=== PATIENT | male | born 1950 | race Caucasian/White ===

== ENCOUNTER → 2019-09-01 | Outpatient (CLI) | payer MEDICARE, OTHER | END | disposition home or self-care (01) | LOC: RAH 07:50 | PROVIDERS: ATTEND Internal Medicine | DX: K76.0 Fatty (change of) liver, not elsewhere classified (principal); N20.0 Calculus of kidney; I77.810 Thoracic aortic ectasia | CPT/HCPCS: 76700 ==

== ENCOUNTER → 2019-11-29 | Outpatient (CLI) | payer MEDICARE | END | disposition home or self-care (01) | LOC: SHCH 14:28 | PROVIDERS: ATTEND Internal Medicine Cardiovascular Disease | DX: I10 Essential (primary) hypertension (principal) ==

== ENCOUNTER → 2019-11-29 | Outpatient (CLI) | payer OTHER | END | disposition home or self-care (01) | LOC: OIH 14:28 | PROVIDERS: ATTEND Internal Medicine Cardiovascular Disease | DX: Z13.6 Encounter for screening for cardiovascular disorders (principal); I71.2 Thoracic aortic aneurysm, without rupture ==

== ENCOUNTER → 2020-11-21 | Outpatient (CLI) | payer MEDICARE ==
[~2020-11-21] MED LIST: IOHEXOL 350 MG/ML 100ML INFUS..BTL IV ONE
== END | disposition home or self-care (01) ==
LOC: RAH 08:24
PROVIDERS: ATTEND Internal Medicine Cardiovascular Disease
DX: I71.4 Abdominal aortic aneurysm, without rupture (principal); I71.2 Thoracic aortic aneurysm, without rupture; I26.99 Other pulmonary embolism without acute cor pulmonale; I10 Essential (primary) hypertension
CPT/HCPCS: 71275; Q9967

== ENCOUNTER → 2021-01-10 | Outpatient (CLI) | payer MEDICARE | END | disposition home or self-care (01) | LOC: RAH 09:16 | PROVIDERS: ATTEND Internal Medicine | DX: M19.011 Primary osteoarthritis, right shoulder (principal); M25.511 Pain in right shoulder; M89.321 Hypertrophy of bone, right humerus | CPT/HCPCS: 73030 ==

== ENCOUNTER → 2021-08-14 | Outpatient (CLI) | payer MEDICARE | END | disposition home or self-care (01) | LOC: RAH 09:29 | PROVIDERS: ATTEND Orthopaedic Surgery | DX: M75.101 Unspecified rotator cuff tear or rupture of right shoulder, not specified as traumatic (principal); M19.011 Primary osteoarthritis, right shoulder; M85.621 Other cyst of bone, right upper arm | CPT/HCPCS: 73221 ==

== ENCOUNTER 2022-11-01 06:28 | Day surgery (SDC) | payer MEDICARE ==
[2022-10-30 12:20] VITALS: BP 135/64
[2022-10-30 12:29] LABS: BASOPHILS % (AUTO) 0.7 % (0.0-5.0); EOSINOPHILS % (AUTO) 3.3 % (0.0-8.0); HEMATOCRIT 41.9 % (42-54); LYMPHOCYTES % (AUTO) 38.4 % (21.0-51.0); MEAN CORPUSCULAR HEMOGLOBIN 31.2 pg (27.0-33.0); MEAN CORPUSCULAR HGB CONC 34.6 g/dL (32.0-36.0); MEAN CORPUSCULAR VOLUME 90.1 fL (79-99); MONOCYTES % (AUTO) 8.8 % (3.0-13.0); NEUTROPHILS % (AUTO) 48.5 % (40.0-77.0); PLATELET COUNT (AUTO) 274 K/uL (130-400); RED BLOOD CELL COUNT(AUTO) 4.65 MIL/uL (4.50-6.20); RED CELL DISTRIBUTION WIDTH 13.2 % (11.0-15.5)
[2022-10-30 12:38] LABS: CREATININE 1.1 mg/dL (0.5-1.5); POTASSIUM 4.8 mmol/L (3.5-5.1)
[~2022-11-01] VITALS: Ht 182.9 cm; Wt 99.6 kg
[2022-11-01] VITALS (14 sets, daily range): BP systolic 102–143; BP diastolic 53–81
[~2022-11-01 06:28] MED LIST changes: +ACET-66 PO; +AEC81 PO; +ALBU18HF7 IH; +ASCO500C18 PO; +CETI10CA5 PO; +FLUT16H NASAL; +IBUP-2077 PO; -IOHEXOL 350 MG/ML 100ML INFUS..BTL IV ONE; +MONT-39 PO; +MULT-1258 PO; +OMEP40CA21 PO; +PRAV20TA4 PO; +TAMS-1 PO; +VALA100031 PO; +VALS320T16 PO; +VITAMIN D PO; +ZINC220T4 PO
[2022-11-01] MEDS ORDERED: LEVOFLOXACIN 500 MG/D5W 100 ML 100 ML ONE (06:52)
[2022-11-01] MEDS ORDERED: LACTATED RINGERS 1000ML 1,000 ML IV ONE (06:52)
[2022-11-01] MEDS ORDERED: SUCCINYLCHOLINE 200MG/10ML SYR ONE (07:17)
[2022-11-01] MEDS ORDERED: LIDOCAINE PF 100MG/5ML (2%) SYRINGE 5ML ONE (07:18)
[2022-11-01] MEDS ORDERED: ONDANSETRON 4MG INJ ONE (07:18)
[2022-11-01] MEDS ORDERED: PROPOFOL 10 MG/ML 20ML VIAL IV ONE (07:18)
[2022-11-01] MEDS ORDERED: NEOSTIGMINE 5MG/5ML SYR IV ONE (07:18)
[2022-11-01] MEDS ORDERED: GLYCOPYRROLATE 1 MG/5 ML SYRINGE ONE (07:18)
[2022-11-01] MEDS ORDERED: ROCURONIUM 10MG/1ML SYR 10 MG/ML ML ONE (07:18)
[2022-11-01] MEDS ORDERED: MIDAZOLAM HCL 1 MG/ML 2ML VIAL ONE (07:18)
[2022-11-01] MEDS ORDERED: DEXAMETHASONE SOD PHOSPHATE 10MG/ML 1ML VIAL ONE (07:18)
[2022-11-01] MEDS ORDERED: FENTANYL CITRATE PF 50 MCG/1 ML 2ML VIAL ONE (07:19)
[2022-11-01] MEDS ORDERED: LIDOCAINE HCL-MPF 2% 10ML AMP IJ ONE (09:03)
[2022-11-01] MEDS ORDERED: PHENAZOPYRIDINE HCL 200 MG TABLET ONE (09:50)
== END 2022-11-01 10:30 | disposition home or self-care (01) ==
LOC: DAH 06:28
PROVIDERS: ATTEND Urology
DX: N40.1 Benign prostatic hyperplasia with lower urinary tract symptoms (principal); Z20.822 Contact with and (suspected) exposure to COVID-19; R39.14 Feeling of incomplete bladder emptying; R39.12 Poor urinary stream; I10 Essential (primary) hypertension; K21.9 Gastro-esophageal reflux disease without esophagitis; I73.9 Peripheral vascular disease, unspecified; Z88.0 Allergy status to penicillin; Z88.2 Allergy status to sulfonamides; Z79.899 Other long term (current) drug therapy; Z98.890 Other specified postprocedural states
CPT/HCPCS: 80048; 85025; 87426; 36415; 93005; 52648; A6260; A4663; J7120 ×2; A4354; A4340; J3010; J0330; J3490 ×2; J1100; J2710; J1956; J2001; J2250; J2704; J2405; A4358; A4215; A4223; A4222; A4221; A4510; A4600

== ENCOUNTER → 2023-02-10 | Outpatient (CLI) | payer MEDICARE ==
[~2023-02-10] MED LIST changes: -AEC81 PO; +IOHEXOL-350 75 ML VIAL IV ONE; -MULT-1258 PO
== END | disposition home or self-care (01) ==
LOC: RAH 09:12
PROVIDERS: ATTEND Internal Medicine Cardiovascular Disease
DX: K44.9 Diaphragmatic hernia without obstruction or gangrene (principal); I71.22 Aneurysm of the aortic arch, without rupture; N28.1 Cyst of kidney, acquired; I71.20 Thoracic aortic aneurysm, without rupture, unspecified; I51.7 Cardiomegaly; K76.0 Fatty (change of) liver, not elsewhere classified
CPT/HCPCS: 71275; Q9967

== ENCOUNTER → 2023-05-28 | Outpatient (CLI) | payer MEDICARE ==
[~2023-05-28] MED LIST changes: -IOHEXOL-350 75 ML VIAL IV ONE
== END | disposition home or self-care (01) ==
LOC: RAH 11:03
PROVIDERS: ATTEND Clinical Nurse Specialist Family Health
DX: M47.817 Spondylosis without myelopathy or radiculopathy, lumbosacral region (principal); M54.6 Pain in thoracic spine; R10.11 Right upper quadrant pain; N28.9 Disorder of kidney and ureter, unspecified
CPT/HCPCS: 71100; 72070; 72100

== ENCOUNTER 2023-07-07 21:50 | Observation (INO) | payer MEDICARE ==
[~2023-07-07] VITALS: Ht 182.9 cm; Wt 99.0 kg
[2023-07-08 00:46] LABS: BASOPHILS # (AUTO) 0.07 K/uL (0.00-0.20); BASOPHILS % (AUTO) 0.9 % (0.0-5.0); EOSINOPHILS # (AUTO) 0.25 K/uL (0.00-0.70); EOSINOPHILS % (AUTO) 3.4 % (0.0-8.0); HEMATOCRIT 42.2 % (42-54); IMMATURE GRANULOCYTE ABSOLUTE 0.02 K/uL (0-1); LYMPHOCYTES # (AUTO) 3.1 K/uL (1.0-4.8); LYMPHOCYTES % (AUTO) 41.5 % (21.0-51.0); MEAN CORPUSCULAR HEMOGLOBIN 31.5 pg (27.0-33.0); MEAN CORPUSCULAR VOLUME 87.6 fL (79-99); MONOCYTES # (AUTO) 0.8 K/uL (0.1-1.0); MONOCYTES % (AUTO) 10.5 % (3.0-13.0); NEUTROPHILS # (AUTO) 3.2 K/uL (1.8-7.7); NEUTROPHILS % (AUTO) 43.4 % (40.0-77.0); PLATELET COUNT (AUTO) 251 K/uL (130-400); RED BLOOD CELL COUNT(AUTO) 4.82 MIL/uL (4.50-6.20); RED CELL DISTRIBUTION WIDTH 12.4 % (11.0-15.5); WHITE BLOOD COUNT (AUTO) 7.4 K/uL (4.8-10.8)
[2023-07-08 00:51] LABS: CREATININE 1.3 mg/dL (0.5-1.5); POTASSIUM 3.6 mmol/L (3.5-5.1)
[2023-07-08 00:52] LABS: INR <= 0.93 (0.85-1.15); PROTHROMBIN TIME 10.2 SEC (9.6-11.6)
[2023-07-08 00:53] LABS: PARTIAL THROMBOPLASTIN TIME 27.6 SEC (26.3-35.5)
[2023-07-08 00:56] LABS: ALBUMIN 3.7 g/dL (3.5-5.0); BILIRUBIN,TOTAL 0.3 mg/dL (0.2-1.0)
[2023-07-08] MEDS ORDERED: IOHEXOL 350 MG/ML 100ML INFUS..BTL IV ONE (01:36)
[2023-07-08] MEDS ORDERED: IOHEXOL-350 50ML VIAL IV ONE (01:36)
[2023-07-08] MEDS ORDERED: CYCLOBENZAPRINE HCL 10 MG TABLET PO ONE (03:00)
[2023-07-08] MEDS ORDERED: ONDANSETRON 4MG INJ IV PRN (03:30)
[2023-07-08] MEDS ORDERED: ASPIRIN 81MG CHEW TAB PO ONE (03:30)
[2023-07-08] MEDS ORDERED: HYDROCODONE/ACETAMINOPHEN 5/325 MG TAB PO PRN (03:30)
[2023-07-08] MEDS: NITROGLYCERIN 1GM OINT 1 INCH/1GM TD SCH ×3 (03:30→19:34)
[2023-07-08] MEDS ORDERED: KCL 20 MEQ ERTAB PO PRN (03:30)
[2023-07-08] MEDS ORDERED: MAGNESIUM 2GM PREMIX 50ML 50 ML IV PRN (03:30)
[2023-07-08] MEDS ORDERED: ACETAMINOPHEN 325 MG TAB PO PRN ×2 (03:30)
[2023-07-08] MEDS ORDERED: POTASSIUM CHLORIDE 10% ELIXIR 20 MEQ/15 ML UDCUP PO PRN (03:30)
[2023-07-08] MEDS ORDERED: POTASSIUM CHLORIDE 20MEQ/100ML 100 ML IV PRN (03:30)
[2023-07-08] MEDS: HYDROCODONE/ACETAMINOPHEN 5/325 MG TAB PO PRN ×2 (05:27→11:14)
[2023-07-08] MEDS: ASPIRIN 81MG CHEW TAB PO SCH (08:23)
[2023-07-08] MEDS: ENOXAPARIN SODIUM 40 MG/0.4 ML SYRINGE SQ SCH (08:23)
[2023-07-08] MEDS: CYCLOBENZAPRINE HCL 10 MG TABLET PO SCH ×2 (08:23→20:22)
[2023-07-08] MEDS: FAMOTIDINE 20MG TAB PO SCH (08:24)
[2023-07-08] MEDS: AMLODIPINE 5 MG TAB PO SCH ×2 (08:24→08:29)
[2023-07-08 08:25] VITALS: BP 152/66; PULSE 44; RESP 18
[2023-07-08] MEDS ORDERED: LISINOPRIL 10 MG TABLET PO SCH (09:00)
[2023-07-08 09:35] LABS: THYROID STIMULATING HORMONE 3.12 uIU/mL (0.36-3.74)
[2023-07-08] MEDS ORDERED: ASPI-1197 PO (11:08)
[2023-07-08 12:34] VITALS: BP 129/59; PULSE 49; RESP 18
[2023-07-08 16:00] VITALS: BP 131/57; PULSE 47; RESP 18
[2023-07-08 20:00] VITALS: BP 147/66; PULSE 49; RESP 18; O2SAT 94
[2023-07-09] VITALS: BP 106/45; PULSE 51; RESP 20
[2023-07-09 00:45] VITALS: BP 142/66; PULSE 51; RESP 19; O2SAT 96
[2023-07-09] MEDS: NITROGLYCERIN 1GM OINT 1 INCH/1GM TD SCH (03:30)
[2023-07-09 04:35] VITALS: BP 134/69; PULSE 45; RESP 19
[2023-07-09 06:41] LABS: BASOPHILS # (AUTO) 0.06 K/uL (0.00-0.20); BASOPHILS % (AUTO) 0.9 % (0.0-5.0); EOSINOPHILS # (AUTO) 0.34 K/uL (0.00-0.70); EOSINOPHILS % (AUTO) 5.2 % (0.0-8.0); HEMATOCRIT 38.8 % (42-54); IMMATURE GRANULOCYTE ABSOLUTE 0.02 K/uL (0-1); LYMPHOCYTES # (AUTO) 2.7 K/uL (1.0-4.8); LYMPHOCYTES % (AUTO) 40.6 % (21.0-51.0); MEAN CORPUSCULAR HGB CONC 35.8 g/dL (32.0-36.0); MEAN CORPUSCULAR VOLUME 86.6 fL (79-99); MONOCYTES # (AUTO) 0.6 K/uL (0.1-1.0); MONOCYTES % (AUTO) 9.1 % (3.0-13.0); NEUTROPHILS # (AUTO) 2.9 K/uL (1.8-7.7); NEUTROPHILS % (AUTO) 43.9 % (40.0-77.0); PLATELET COUNT (AUTO) 255 K/uL (130-400); RED BLOOD CELL COUNT(AUTO) 4.48 MIL/uL (4.50-6.20); RED CELL DISTRIBUTION WIDTH 12.2 % (11.0-15.5); WHITE BLOOD COUNT (AUTO) 6.6 K/uL (4.8-10.8)
[2023-07-09 06:45] LABS: CREATININE 0.8 mg/dL (0.5-1.5); MAGNESIUM 1.9 mg/dL (1.80-2.40); PHOSPHORUS 3.9 mg/dL (2.5-4.9); POTASSIUM 4.2 mmol/L (3.5-5.1)
[2023-07-09 08:00] VITALS: O2SAT 96
[2023-07-09 08:01] VITALS: BP 138/78; PULSE 47; RESP 18
[2023-07-09] MEDS: ASPIRIN 81MG CHEW TAB PO SCH (10:08)
[2023-07-09] MEDS: FAMOTIDINE 20MG TAB PO SCH (10:08)
[2023-07-09] MEDS: AMLODIPINE 5 MG TAB PO SCH (10:09)
[2023-07-09] MEDS: ENOXAPARIN SODIUM 40 MG/0.4 ML SYRINGE SQ SCH (10:09)
[2023-07-09] MEDS: CYCLOBENZAPRINE HCL 10 MG TABLET PO SCH (10:10)
[2023-07-09] MEDS ORDERED: AMLO5TAB4 PO (10:52)
[2023-07-09] MEDS ORDERED: CYCL-309 PO (10:52)
[2023-07-09 11:32] VITALS: BP 136/78; PULSE 50; RESP 17
== END 2023-07-09 12:55 | disposition home or self-care (01) ==
LOC: EDH 21:50 → EDHIP 07-08 03:17 → INTOOBSV 07-08 03:17 → 4CH 07-09 00:25
PROVIDERS: ADMIT Internal Medicine; ATTEND Internal Medicine
DX: I16.0 Hypertensive urgency (principal); I10 Essential (primary) hypertension; M54.2 Cervicalgia; E78.5 Hyperlipidemia, unspecified; I71.21 Aneurysm of the ascending aorta, without rupture; I71.9 Aortic aneurysm of unspecified site, without rupture; N40.0 Benign prostatic hyperplasia without lower urinary tract symptoms; F17.210 Nicotine dependence, cigarettes, uncomplicated; Z51.5 Encounter for palliative care; Z79.82 Long term (current) use of aspirin; Z88.0 Allergy status to penicillin; Z79.899 Other long term (current) drug therapy; Z98.1 Arthrodesis status; Z86.79 Personal history of other diseases of the circulatory system; Z88.2 Allergy status to sulfonamides
CPT/HCPCS: 99285; 71275; 74174; 80061; 96372 ×2; 84443; 84484 ×4; 80053; 85025 ×2; 85610; 85730; 36415 ×2; 70498; 93005; 96365; 96366; 83735; 84100; 80048; J1650 ×2; Q9967 ×2; G0378; J3475

== ENCOUNTER → 2023-07-10 | Outpatient (CLI) | payer MEDICARE ==
[~2023-07-10] MED LIST changes: +AMLO5TAB4 PO; +ASPI-1197 PO; +CYCL-309 PO; -TAMS-1 PO
== END | disposition home or self-care (01) ==
LOC: RAH 12:42
PROVIDERS: ATTEND Internal Medicine Cardiovascular Disease
DX: M54.2 Cervicalgia (principal)
CPT/HCPCS: 72040

== ENCOUNTER → 2024-01-26 | Outpatient (CLI) | payer MEDICARE ==
[~2024-01-26] MED LIST changes: +IOHEXOL 350 MG/ML 100ML INFUS..BTL IV ONE
== END | disposition home or self-care (01) ==
LOC: RAH 08:41
PROVIDERS: ATTEND Internal Medicine Cardiovascular Disease
DX: I71.21 Aneurysm of the ascending aorta, without rupture (principal)
CPT/HCPCS: 71275; Q9967

== ENCOUNTER → 2024-02-09 | Outpatient (CLI) | payer MEDICARE ==
[~2024-02-09] MED LIST changes: -IOHEXOL 350 MG/ML 100ML INFUS..BTL IV ONE
[2024-02-09] MEDS: REGADENOSON 0.4 MG/5 ML PF SYG IVP ONE (10:48)
== END | disposition home or self-care (01) ==
LOC: SHCH 08:12
PROVIDERS: ATTEND Internal Medicine Cardiovascular Disease
DX: I10 Essential (primary) hypertension (principal); Z82.49 Family history of ischemic heart disease and other diseases of the circulatory system; I25.10 Atherosclerotic heart disease of native coronary artery without angina pectoris
CPT/HCPCS: 78452; 93017; J2785; A9500 ×2